=== PATIENT | male | born 1950 ===

== ENCOUNTER 2017-07-29 13:00 | Inpatient (IN) | payer OTHER ==
[2017-07-29 14:52] VITALS: BMI 34.8
[2017-07-29] MEDS: Oxycodone/Acetaminophen 5/325 mg Tab PO PRN (16:54)
[2017-07-29 19:40] VITALS: RESP 20
[2017-07-29] MEDS: Enoxaparin 30 mg Syringe SC SCH (21:12)
[2017-07-30] MEDS: GlipiZIDE 10 mg SR Tab PO SCH (08:26)
[2017-07-30] MEDS: Enoxaparin 30 mg Syringe SC SCH ×2 (08:27→20:13)
[2017-07-30] MEDS: Oxycodone/Acetaminophen 5/325 mg Tab PO PRN ×2 (11:58→20:14)
--- NOTE | 2017-07-30 12:26 | CP.PCM.HP ---
History of Present Illness - History of Present Illness History of Present Illness: Patient is a 67 gentleman with significant hx of severe OA, htn, DM2, hypercholestrol. Patient underwent to lt knee replacement. At present in post op comfortable not in distress, no SOS, no CP , afebrile. Patient for TCU. Present on Admission - Present on Admission Any Indicators Present on Admission: No Review of Systems - Constitutional Constitutional: As Per HPI - EENT Eyes: As Per HPI - Cardiovascular Cardiovascular: As Per HPI - Respiratory Respiratory: As Per HPI - Gastrointestinal Gastrointestinal: As Per HPI - Musculoskeletal Musculoskeletal: As Per HPI - Integumentary Integumentary: As Per HPI - Neurological Neurological: As Per HPI Past Patient History - Infectious Disease Hx of Infectious Diseases: None - Past Medical History & Family History Past Medical History?: Yes - Past Social History Smoking Status: Never Smoked - CARDIAC Hx Cardiac Disorders: Yes Hx Hypercholesterolemia: Yes Hx Hypertension: Yes - PULMONARY Hx Respiratory Disorders: No - NEUROLOGICAL Hx Neurological Disorder: No Hx Multiple Sclerosis: Yes (has not followed up with PMD in >1 year; no meds taken for this issue) - HEENT Hx HEENT Problems: No - RENAL Hx Chronic Kidney Disease: No - ENDOCRINE/METABOLIC Hx Diabetes Mellitus Type 2: Yes - HEMATOLOGICAL/ONCOLOGICAL Hx Blood Disorders: No Hx AIDS: No Hx Human Immunodeficiency Virus (HIV): No - INTEGUMENTARY Hx Dermatological Problems: No - MUSCULOSKELETAL/RHEUMATOLOGICAL Hx Arthritis: Yes Hx Falls: No Other/Comment: s/p left TKR - GASTROINTESTINAL Hx Gastrointestinal Disorders: No - GENITOURINARY/GYNECOLOGICAL Hx Genitourinary Disorders: No - PSYCHIATRIC Hx Emotional Abuse: No Hx Physical Abuse: No Hx Substance Use: No - SURGICAL HISTORY Hx Surgeries: Yes Hx Arthroscopy: Yes (LEFT KNEE) - ANESTHESIA Hx Anesthesia: Yes Hx Anesthesia Reactions: No Hx Malignant Hyperthermia: No Meds Allergies/Adverse Reactions: Allergies Allergy/AdvReac Type Severity Reaction Status Date / Time No Known Allergies Allergy Verified 07/29/17 14:18 Physical Exam - Constitutional Appears: Well - Eye Exam Eye Exam: EOMI, Normal appearance Pupil Exam: PERRL - ENT Exam ENT Exam: Mucous Membranes Moist - Respiratory Exam Respiratory Exam: Clear to Auscultation Bilateral - Cardiovascular Exam Cardiovascular Exam: REGULAR RHYTHM, +S1, +S2 - GI/Abdominal Exam GI & Abdominal Exam: Normal Bowel Sounds - Neurological Exam Neurological exam: Alert, CN II-XII Intact, Oriented x3 - Psychiatric Exam Psychiatric exam: Normal Affect - Skin Skin Exam: Normal Color Results - Vital Signs Recent Vital Signs: Last Vital Signs Temp 97.9 F 07/30/17 08:13 Pulse 82 07/30/17 08:27 Resp 20 07/30/17 08:13 BP 115/56 L 07/30/17 08:27 Pulse Ox 91 L 07/30/17 08:13 - Labs Labs: Laboratory Results - last 24 hr 07/30/17 10:45 POC Glucose (mg/dL) 143 H Assessment & Plan (1) Knee joint replacement status Status: Acute (2) Myalgia Status: Chronic (3) Arthritis Status: Chronic (4) Diabetes 1.5, managed as type 2 Status: Chronic (5) Hypercholesteremia Status: Chronic (6) Hypertensive cardiovascular disease Status: Chronic - Assessment and Plan (Free Text) Plan: Continue present rx.
[2017-07-30 13:34] LABS: MEAN CELL VOLUME 88.7 fl (80.0-94.0); MEAN CORPUSCULAR HEMOGLOBIN 29.7 pg (27.0-31.0); MEAN CORPUSCULAR HGB CONC 33.5 g/dL (33.0-37.0); RED CELL DISTRIBUTION WIDTH 13.2 % (11.5-14.5); WHITE BLOOD COUNT 10.7 K/uL (4.8-10.8)
[2017-07-30 13:43] LABS: BLOOD UREA NITROGEN 13 mg/dl (9-20); CALCIUM 9.1 mg/dL (8.4-10.2); CARBON DIOXIDE 23 mmol/L (22-30); CHLORIDE 102 mmol/L (98-107); GFR AFRICAN-AMERICAN > 60; GLUCOSE,RANDOM 115 mg/dL (75-110); SODIUM 138 mmol/l (132-148)
--- NOTE | 2017-07-30 15:02 | CP.PCM.CON ---
History of Present Illness - History of Present Illness History of Present Illness: david is a 67 year old male with left knee replacement Review of Systems - Musculoskeletal Musculoskeletal: Abnormal Gait, Muscle Weakness - Neurological Neurological: Weakness Past Patient History - Infectious Disease Hx of Infectious Diseases: None - Past Medical History & Family History Past Medical History?: Yes - Past Social History Smoking Status: Never Smoked - CARDIAC Hx Cardiac Disorders: Yes Hx Hypercholesterolemia: Yes Hx Hypertension: Yes - PULMONARY Hx Respiratory Disorders: No - NEUROLOGICAL Hx Neurological Disorder: No Hx Multiple Sclerosis: Yes (has not followed up with PMD in >1 year; no meds taken for this issue) - HEENT Hx HEENT Problems: No - RENAL Hx Chronic Kidney Disease: No - ENDOCRINE/METABOLIC Hx Diabetes Mellitus Type 2: Yes - HEMATOLOGICAL/ONCOLOGICAL Hx Blood Disorders: No Hx AIDS: No Hx Human Immunodeficiency Virus (HIV): No - INTEGUMENTARY Hx Dermatological Problems: No - MUSCULOSKELETAL/RHEUMATOLOGICAL Hx Arthritis: Yes Hx Falls: No Other/Comment: s/p left TKR - GASTROINTESTINAL Hx Gastrointestinal Disorders: No - GENITOURINARY/GYNECOLOGICAL Hx Genitourinary Disorders: No - PSYCHIATRIC Hx Emotional Abuse: No Hx Physical Abuse: No Hx Substance Use: No - SURGICAL HISTORY Hx Surgeries: Yes Hx Arthroscopy: Yes (LEFT KNEE) - ANESTHESIA Hx Anesthesia: Yes Hx Anesthesia Reactions: No Hx Malignant Hyperthermia: No Meds Allergies/Adverse Reactions: Allergies Allergy/AdvReac Type Severity Reaction Status Date / Time No Known Allergies Allergy Verified 07/29/17 14:18 - Medications Medications: Current Medications Acetaminophen (Tylenol 325mg Tab) 325 mg PO Q4 PRN PRN Reason: pain1-3 Aspirin (Ecotrin) 81 mg PO DAILY [facility] Last Admin: 07/30/17 08:25 Dose: 81 mg Atenolol (Tenormin) 50 mg PO DAILY [facility] Last Admin: 07/30/17 08:27 Dose: 50 mg Atorvastatin Calcium (Lipitor) 10 mg PO HS [facility] Last Admin: 07/29/17 21:12 Dose: 10 mg Celecoxib (Celebrex) 200 mg PO Q12 [facility] Last Admin: 07/30/17 08:25 Dose: 200 mg Docusate Sodium (Colace) 100 mg PO BID [facility] Last Admin: 07/30/17 08:25 Dose: 100 mg Enoxaparin Sodium (Lovenox) 30 mg SC Q12 [facility] PRN Reason: Protocol Last Admin: 07/30/17 08:27 Dose: 30 mg Glipizide (Glucotrol Xl) 10 mg PO BRK [facility] Last Admin: 07/30/17 08:26 Dose: 10 mg Lactulose (Enulose) 20 gm PO DAILY PRN PRN Reason: Constipation Last Admin: 07/29/17 21:13 Dose: 20 gm Metformin HCl (Glucophage) 500 mg PO DAILY [facility] Last Admin: 07/30/17 08:26 Dose: 500 mg Oxycodone/Acetaminophen (Percocet 5/325 Mg Tab) 1 tab PO Q8 PRN PRN Reason: Pain, moderate (4-7) Stop: 08/01/17 17:01 Last Admin: 07/30/17 11:58 Dose: 1 tab Sitagliptin Phosphate (Januvia) 100 mg PO DAILY [facility] Last Admin: 07/30/17 08:27 Dose: 100 mg Physical Exam - Head Exam Head Exam: ATRAUMATIC, NORMAL INSPECTION, NORMOCEPHALIC - Eye Exam Eye Exam: EOMI, Normal appearance, PERRL Pupil Exam: NORMAL ACCOMODATION - ENT Exam ENT Exam: Mucous Membranes Moist, Normal Exam - Neck Exam Neck exam: Positive for: Normal Inspection - Respiratory Exam Respiratory Exam: NORMAL BREATHING PATTERN - Cardiovascular Exam Cardiovascular Exam: REGULAR RHYTHM - GI/Abdominal Exam GI & Abdominal Exam: Normal Bowel Sounds - Rectal Exam Rectal Exam: NORMAL INSPECTION - Exam External exam: NORMAL EXTERNAL EXAM - Extremities Exam Extremities exam: Positive for: normal inspection - Back Exam Back exam: NORMAL INSPECTION - Neurological Exam Neurological exam: Alert, CN II-XII Intact - Psychiatric Exam Psychiatric exam: Normal Affect, Normal Mood - Skin Additional comments: left leg weakness with dressing in place Results - Vital Signs Recent Vital Signs: Last Vital Signs Temp 97.9 F 07/30/17 08:13 Pulse 82 07/30/17 08:27 Resp 20 07/30/17 08:13 BP 115/56 L 07/30/17 08:27 Pulse Ox 91 L 07/30/17 08:13 - Labs Result Diagrams: 07/30/17 13:15 07/30/17 13:15 Labs: Laboratory Results - last 24 hr 07/30/17 07/30/17 07/30/17 10:45 13:15 13:15 WBC 10.7 RBC 3.83 L Hgb 11.4 L Hct 34.0 L MCV 88.7 MCH 29.7 MCHC 33.5 RDW 13.2 Plt Count 248 Sodium 138 Potassium 4.0 Chloride 102 Carbon Dioxide 23 Anion Gap 17 BUN 13 Creatinine 0.8 Est GFR ( Amer) > 60 Est GFR (Non-Af Amer) > 60 POC Glucose (mg/dL) 143 H Random Glucose 115 H Calcium 9.1 Assessment & Plan (1) Knee joint replacement status Assessment and Plan: plan for physcial, occupational and rec therapy for ROM, strengthening , transfers and gait training . Monitor skin,and incisional site pain treatment Status: Acute (2) Arthritis Status: Chronic (3) Diabetes 1.5, managed as type 2 Status: Chronic (4) Hypercholesteremia Status: Chronic (5) Hypertensive cardiovascular disease Status: Chronic (6) Myalgia Status: Chronic
--- NOTE | 2017-07-30 16:36 | CP.PCM.PN ---
Subjective - Date & Time of Evaluation Date of Evaluation: 07/30/17 Time of Evaluation: 07:40 - Subjective Subjective: S/P LTKR POD#3 Pt seen and examined at bedside, comfortable in bed Pt denies any current left knee pain, well controlled with pain meds Pt denies any SOB, chest pain, N/V/D, numbness/tingling LLE Objective - Vital Signs/Intake and Output Vital Signs (last 24 hours): Temp Pulse Resp BP Pulse Ox 97.9 F 79 20 123/67 96 07/30/17 15:51 07/30/17 15:51 07/30/17 15:51 07/30/17 15:51 07/30/17 15:51 - Medications Medications: Current Medications Acetaminophen (Tylenol 325mg Tab) 325 mg PO Q4 PRN PRN Reason: pain1-3 Aspirin (Ecotrin) 81 mg PO DAILY [facility] Last Admin: 07/30/17 08:25 Dose: 81 mg Atenolol (Tenormin) 50 mg PO DAILY [facility] Last Admin: 07/30/17 08:27 Dose: 50 mg Atorvastatin Calcium (Lipitor) 10 mg PO HS [facility] Last Admin: 07/29/17 21:12 Dose: 10 mg Celecoxib (Celebrex) 200 mg PO Q12 [facility] Last Admin: 07/30/17 08:25 Dose: 200 mg Docusate Sodium (Colace) 100 mg PO BID [facility] Last Admin: 07/30/17 08:25 Dose: 100 mg Enoxaparin Sodium (Lovenox) 30 mg SC Q12 [facility] PRN Reason: Protocol Last Admin: 07/30/17 08:27 Dose: 30 mg Glipizide (Glucotrol Xl) 10 mg PO BRK [facility] Last Admin: 07/30/17 08:26 Dose: 10 mg Lactulose (Enulose) 20 gm PO DAILY PRN PRN Reason: Constipation Last Admin: 07/29/17 21:13 Dose: 20 gm Metformin HCl (Glucophage) 500 mg PO DAILY [facility] Last Admin: 07/30/17 08:26 Dose: 500 mg Oxycodone/Acetaminophen (Percocet 5/325 Mg Tab) 1 tab PO Q8 PRN PRN Reason: Pain, moderate (4-7) Stop: 08/01/17 17:01 Last Admin: 07/30/17 11:58 Dose: 1 tab Sitagliptin Phosphate (Januvia) 100 mg PO DAILY [facility] Last Admin: 07/30/17 08:27 Dose: 100 mg - Labs Labs: 07/30/17 13:15 07/30/17 13:15 - Constitutional Appears: Well, No Acute Distress - Respiratory Exam Respiratory Exam: Clear to Ausculation Bilateral, NORMAL BREATHING PATTERN - Cardiovascular Exam Cardiovascular Exam: REGULAR RHYTHM, RRR - Extremities Exam Additional comments: LLE: Knee dressing C/D/I Calves soft and nontender b/l N/V intact distally Normal ROM at ankle Distal pulses wnl Assessment and Plan - Assessment and Plan (Free Text) Assessment: 67 yo M s/p LTKR POD#3 Plan: Pain Control DVT ppx PT/OT WBAT LLE Continue current management Discussed with Dr. Putnam
--- NOTE | 2017-07-30 17:06 | PN ---
PHYSIATRY PROGRESS NOTE SUBJECTIVE: The patient is feeling fine, mild discomfort in the left knee. No other complaints at present. PHYSICAL EXAMINATION: VITAL SIGNS: Stable. NECK: Supple. CHEST: Symmetrical. HEART: S1 and S2. ABDOMEN: Area is benign. EXTREMITIES: No clubbing, cyanosis or edema. IMPRESSION: Left total knee replacement with also history of osteoarthritis, hypertension, diabetes, cholesterolemia. PLAN: Physical therapy and occupational therapy for range of motion, strengthening, transfers, ambulation, gait training, to monitor the quadriceps strength, improve range of motion of the knee. Dressing in place, able to dorsiflex and plantar flex the left foot. Luisito Martinez MD
[2017-07-31] MEDS: Enoxaparin 30 mg Syringe SC SCH ×2 (08:33→21:09)
[2017-07-31] MEDS: GlipiZIDE 10 mg SR Tab PO SCH (08:34)
--- NOTE | 2017-07-31 14:26 | CP.PCM.PN ---
Subjective - Date & Time of Evaluation Date of Evaluation: 07/31/17 Time of Evaluation: 14:27 - Subjective Subjective: Comfortable, no CO no SOB, no pain. Objective - Vital Signs/Intake and Output Vital Signs (last 24 hours): Temp Pulse Resp BP Pulse Ox 97.7 F 68 20 121/62 96 07/31/17 08:12 07/31/17 08:33 07/31/17 08:12 07/31/17 08:33 07/31/17 08:12 - Medications Medications: Current Medications Acetaminophen (Tylenol 325mg Tab) 325 mg PO Q4 PRN PRN Reason: pain1-3 Aspirin (Ecotrin) 81 mg PO DAILY [facility] Last Admin: 07/31/17 08:34 Dose: 81 mg Atenolol (Tenormin) 50 mg PO DAILY [facility] Last Admin: 07/31/17 08:33 Dose: 50 mg Atorvastatin Calcium (Lipitor) 10 mg PO HS [facility] Last Admin: 07/30/17 22:12 Dose: 10 mg Celecoxib (Celebrex) 200 mg PO Q12 [facility] Last Admin: 07/31/17 08:33 Dose: 200 mg Docusate Sodium (Colace) 100 mg PO BID [facility] Last Admin: 07/31/17 08:33 Dose: 100 mg Enoxaparin Sodium (Lovenox) 30 mg SC Q12 [facility] PRN Reason: Protocol Last Admin: 07/31/17 08:33 Dose: 30 mg Glipizide (Glucotrol Xl) 10 mg PO BRK [facility] Last Admin: 07/31/17 08:34 Dose: 10 mg Lactulose (Enulose) 20 gm PO DAILY PRN PRN Reason: Constipation Last Admin: 07/29/17 21:13 Dose: 20 gm Metformin HCl (Glucophage) 500 mg PO DAILY [facility] Last Admin: 07/31/17 08:34 Dose: 500 mg Oxycodone/Acetaminophen (Percocet 5/325 Mg Tab) 1 tab PO Q8 PRN PRN Reason: Pain, moderate (4-7) Stop: 08/01/17 17:01 Last Admin: 07/30/17 20:14 Dose: 1 tab Sitagliptin Phosphate (Januvia) 100 mg PO DAILY [facility] Last Admin: 07/31/17 08:33 Dose: 100 mg - Labs Labs: 07/30/17 13:15 07/30/17 13:15 - Constitutional Appears: Well - Head Exam Head Exam: ATRAUMATIC, NORMAL INSPECTION, NORMOCEPHALIC - Eye Exam Eye Exam: Normal appearance, PERRL - Neck Exam Neck Exam: Full ROM - Respiratory Exam Respiratory Exam: Clear to Ausculation Bilateral - Cardiovascular Exam Cardiovascular Exam: REGULAR RHYTHM, +S1, +S2 - GI/Abdominal Exam GI & Abdominal Exam: Normal Bowel Sounds - Neurological Exam Neurological Exam: Alert, Awake, CN II-XII Intact, Oriented x3 - Psychiatric Exam Psychiatric exam: Normal Affect - Skin Skin Exam: Normal Color Assessment and Plan (1) Knee joint replacement status Status: Acute (2) Myalgia Status: Chronic (3) Arthritis Status: Chronic (4) Diabetes 1.5, managed as type 2 Status: Chronic (5) Hypercholesteremia Status: Chronic (6) Hypertensive cardiovascular disease Status: Chronic - Assessment and Plan (Free Text) Plan: Continue present rx.
[2017-07-31] MEDS: Oxycodone/Acetaminophen 5/325 mg Tab PO PRN (17:16)
[2017-08-01] MEDS: Oxycodone/Acetaminophen 5/325 mg Tab PO PRN ×2 (06:00→16:14)
[2017-08-01] MEDS: GlipiZIDE 10 mg SR Tab PO SCH (08:38)
[2017-08-01] MEDS: Enoxaparin 30 mg Syringe SC SCH ×2 (08:39→21:16)
[2017-08-01] MEDS ORDERED: Oxycodone/Acetaminophen 5/325 mg Tab PO PRN (18:33)
[2017-08-02] MEDS: GlipiZIDE 10 mg SR Tab PO SCH (08:20)
--- NOTE | 2017-08-02 13:13 | CP.PCM.PN ---
Subjective - Date & Time of Evaluation Date of Evaluation: 08/02/17 Time of Evaluation: 13:13 - Subjective Subjective: No new c/o Objective - Vital Signs/Intake and Output Vital Signs (last 24 hours): Temp Pulse Resp BP Pulse Ox 97.7 F 68 20 116/59 L 99 08/02/17 10:00 08/02/17 10:00 08/02/17 10:00 08/02/17 10:00 08/02/17 10:00 - Medications Medications: Current Medications Acetaminophen (Tylenol 325mg Tab) 325 mg PO Q4 PRN PRN Reason: pain1-3 Aspirin (Ecotrin) 81 mg PO DAILY [facility] Last Admin: 08/02/17 08:20 Dose: 81 mg Atenolol (Tenormin) 50 mg PO DAILY [facility] Last Admin: 08/02/17 08:20 Dose: 50 mg Atorvastatin Calcium (Lipitor) 10 mg PO HS [facility] Last Admin: 08/01/17 21:16 Dose: 10 mg Celecoxib (Celebrex) 200 mg PO Q12 [facility] Last Admin: 08/02/17 08:20 Dose: 200 mg Docusate Sodium (Colace) 100 mg PO BID [facility] Last Admin: 08/02/17 08:20 Dose: 100 mg Famotidine (Pepcid) 20 mg PO BID [facility] Last Admin: 08/02/17 08:23 Dose: 20 mg Glipizide (Glucotrol Xl) 10 mg PO BRK [facility] Last Admin: 08/02/17 08:20 Dose: 10 mg Lactulose (Enulose) 20 gm PO DAILY PRN PRN Reason: Constipation Last Admin: 08/01/17 01:00 Dose: 20 gm Metformin HCl (Glucophage) 500 mg PO DAILY@0800 [facility] Last Admin: 08/02/17 08:20 Dose: 500 mg Oxycodone/Acetaminophen (Percocet 5/325 Mg Tab) 1 tab PO Q8 PRN PRN Reason: Pain, moderate (4-7) Stop: 08/05/17 01:01 Last Admin: 08/02/17 09:16 Dose: 1 tab Sitagliptin Phosphate (Januvia) 100 mg PO DAILY [facility] Last Admin: 08/02/17 08:20 Dose: 100 mg - Labs Labs: 07/30/17 13:15 07/30/17 13:15 - Constitutional Appears: Well - Head Exam Head Exam: ATRAUMATIC, NORMAL INSPECTION, NORMOCEPHALIC - Eye Exam Eye Exam: Normal appearance - ENT Exam ENT Exam: Mucous Membranes Moist - Neck Exam Neck Exam: Full ROM - Respiratory Exam Respiratory Exam: Clear to Ausculation Bilateral - Cardiovascular Exam Cardiovascular Exam: REGULAR RHYTHM, +S1, +S2 - GI/Abdominal Exam GI & Abdominal Exam: Soft, Normal Bowel Sounds - Neurological Exam Neurological Exam: Alert, Awake, CN II-XII Intact, Oriented x3 - Psychiatric Exam Psychiatric exam: Normal Affect - Skin Skin Exam: Normal Color Assessment and Plan (1) Knee joint replacement status Status: Acute (2) Myalgia Status: Chronic (3) Arthritis Status: Chronic (4) Diabetes 1.5, managed as type 2 Status: Chronic (5) Hypercholesteremia Status: Chronic (6) Hypertensive cardiovascular disease Status: Chronic - Assessment and Plan (Free Text) Plan: Continue present rx.
[2017-08-02] MEDS: Oxycodone/Acetaminophen 5/325 mg Tab PO PRN (16:27)
[2017-08-03] MEDS: GlipiZIDE 10 mg SR Tab PO SCH (08:46)
[2017-08-03] MEDS: Oxycodone/Acetaminophen 5/325 mg Tab PO PRN ×3 (09:00→21:20)
--- NOTE | 2017-08-03 15:13 | CP.PCM.PN ---
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 Objective - Vital Signs/Intake and Output Vital Signs (last 24 hours): Temp Pulse Resp BP Pulse Ox 97.7 F 68 20 125/59 L 99 08/03/17 07:41 08/03/17 08:45 08/03/17 07:41 08/03/17 08:45 08/03/17 07:41 - Medications Medications: Current Medications Acetaminophen (Tylenol 325mg Tab) 325 mg PO Q4 PRN PRN Reason: pain1-3 Aspirin (Ecotrin) 81 mg PO DAILY [facility] Last Admin: 08/03/17 08:44 Dose: 81 mg Atenolol (Tenormin) 50 mg PO DAILY [facility] Last Admin: 08/03/17 08:45 Dose: 50 mg Atorvastatin Calcium (Lipitor) 10 mg PO HS [facility] Last Admin: 08/02/17 21:17 Dose: 10 mg Celecoxib (Celebrex) 200 mg PO Q12 [facility] Last Admin: 08/03/17 08:40 Dose: 200 mg Docusate Sodium (Colace) 100 mg PO BID [facility] Last Admin: 08/03/17 08:45 Dose: 100 mg Famotidine (Pepcid) 20 mg PO BID [facility] Last Admin: 08/03/17 08:46 Dose: 20 mg Glipizide (Glucotrol Xl) 10 mg PO BRK [facility] Last Admin: 08/03/17 08:46 Dose: 10 mg Lactulose (Enulose) 20 gm PO DAILY PRN PRN Reason: Constipation Last Admin: 08/01/17 01:00 Dose: 20 gm Metformin HCl (Glucophage) 500 mg PO DAILY@0800 [facility] Last Admin: 08/03/17 08:46 Dose: 500 mg Oxycodone/Acetaminophen (Percocet 5/325 Mg Tab) 1 tab PO Q6 PRN PRN Reason: Pain, moderate (4-7) Stop: 08/05/17 16:01 Last Admin: 08/03/17 14:09 Dose: 1 tab Sitagliptin Phosphate (Januvia) 100 mg PO DAILY [facility] Last Admin: 08/03/17 08:45 Dose: 100 mg - Labs Labs: 07/30/17 13:15 07/30/17 13:15 - Constitutional Appears: Well - Head Exam Head Exam: ATRAUMATIC, NORMAL INSPECTION - Eye Exam Eye Exam: EOMI, Normal appearance, PERRL - ENT Exam ENT Exam: Mucous Membranes Moist - Neck Exam Neck Exam: Full ROM - Respiratory Exam Respiratory Exam: Clear to Ausculation Bilateral - Cardiovascular Exam Cardiovascular Exam: REGULAR RHYTHM, +S1, +S2 - GI/Abdominal Exam GI & Abdominal Exam: Soft, Normal Bowel Sounds - Neurological Exam Neurological Exam: Alert, Awake, CN II-XII Intact, Oriented x3 - Psychiatric Exam Psychiatric exam: Normal Affect - Skin Skin Exam: Normal Color Assessment and Plan (1) Knee joint replacement status Status: Acute (2) Myalgia Status: Chronic (3) Arthritis Status: Chronic (4) Diabetes 1.5, managed as type 2 Status: Chronic (5) Hypercholesteremia Status: Chronic (6) Hypertensive cardiovascular disease Status: Chronic - Assessment and Plan (Free Text) Plan: Continue present rx.
--- NOTE | 2017-08-03 17:42 | CP.PCM.PN ---
Subjective - Date & Time of Evaluation Date of Evaluation: 08/02/17 Time of Evaluation: 13:00 - Subjective Subjective: no acute complaints of any knee pain Objective - Vital Signs/Intake and Output Vital Signs (last 24 hours): Temp Pulse Resp BP Pulse Ox 98.2 F 74 20 126/63 96 08/03/17 16:38 08/03/17 16:38 08/03/17 16:38 08/03/17 16:38 08/03/17 16:38 - Medications Medications: Current Medications Acetaminophen (Tylenol 325mg Tab) 325 mg PO Q4 PRN PRN Reason: pain1-3 Aspirin (Ecotrin) 81 mg PO DAILY [facility] Last Admin: 08/03/17 08:44 Dose: 81 mg Atenolol (Tenormin) 50 mg PO DAILY [facility] Last Admin: 08/03/17 08:45 Dose: 50 mg Atorvastatin Calcium (Lipitor) 10 mg PO HS [facility] Last Admin: 08/02/17 21:17 Dose: 10 mg Celecoxib (Celebrex) 200 mg PO Q12 [facility] Last Admin: 08/03/17 08:40 Dose: 200 mg Docusate Sodium (Colace) 100 mg PO BID [facility] Last Admin: 08/03/17 16:45 Dose: 100 mg Famotidine (Pepcid) 20 mg PO BID [facility] Last Admin: 08/03/17 16:45 Dose: 20 mg Glipizide (Glucotrol Xl) 10 mg PO BRK [facility] Last Admin: 08/03/17 08:46 Dose: 10 mg Lactulose (Enulose) 20 gm PO DAILY PRN PRN Reason: Constipation Last Admin: 08/01/17 01:00 Dose: 20 gm Metformin HCl (Glucophage) 500 mg PO DAILY@0800 [facility] Last Admin: 08/03/17 08:46 Dose: 500 mg Oxycodone/Acetaminophen (Percocet 5/325 Mg Tab) 1 tab PO Q6 PRN PRN Reason: Pain, moderate (4-7) Stop: 08/05/17 16:01 Last Admin: 08/03/17 14:09 Dose: 1 tab Sitagliptin Phosphate (Januvia) 100 mg PO DAILY [facility] Last Admin: 08/03/17 08:45 Dose: 100 mg - Labs Labs: 07/30/17 13:15 07/30/17 13:15 - Head Exam Head Exam: ATRAUMATIC, NORMAL INSPECTION, NORMOCEPHALIC - Eye Exam Eye Exam: EOMI, Normal appearance Pupil Exam: NORMAL ACCOMODATION, PERRL - ENT Exam ENT Exam: Mucous Membranes Moist - Neck Exam Neck Exam: Normal Inspection - Respiratory Exam Respiratory Exam: Clear to Ausculation Bilateral - Cardiovascular Exam Cardiovascular Exam: REGULAR RHYTHM - GI/Abdominal Exam GI & Abdominal Exam: Normal Bowel Sounds - Rectal Exam Rectal Exam: NORMAL INSPECTION - Exam External exam: NORMAL EXTERNAL EXAM - Extremities Exam Extremities Exam: Normal Inspection - Back Exam Back Exam: NORMAL INSPECTION - Neurological Exam Neurological Exam: Alert, Awake Neuro motor strength exam: Left Upper Extremity: 4, Right Upper Extremity: 4, Left Lower Extremity: 3, Right Lower Extremity: 4 - Psychiatric Exam Psychiatric exam: Normal Affect, Normal Mood - Skin Skin Exam: Normal Color Assessment and Plan (1) Knee joint replacement status Assessment & Plan: plan for physical, occupational, rec therapy for range of motion, strengthening transfers and gait training monitor range of motion of the knee, and skin Status: Acute (2) Arthritis Status: Chronic (3) Diabetes 1.5, managed as type 2 Status: Chronic (4) Hypercholesteremia Status: Chronic (5) Hypertensive cardiovascular disease Status: Chronic (6) Myalgia Status: Chronic
[2017-08-04] MEDS: Oxycodone/Acetaminophen 5/325 mg Tab PO PRN ×2 (06:06→15:15)
[2017-08-04 06:33] LABS: HEMATOCRIT 36.1 % (35.0-51.0); MEAN CELL VOLUME 87.8 fl (80.0-94.0); MEAN CORPUSCULAR HEMOGLOBIN 29.7 pg (27.0-31.0); MEAN CORPUSCULAR HGB CONC 33.8 g/dL (33.0-37.0); RED CELL DISTRIBUTION WIDTH 13.5 % (11.5-14.5); WHITE BLOOD COUNT 9.5 K/uL (4.8-10.8)
[2017-08-04 06:44] LABS: BLOOD UREA NITROGEN 19 mg/dl (9-20); CALCIUM 9.4 mg/dL (8.4-10.2); CARBON DIOXIDE 25 mmol/L (22-30); CHLORIDE 101 mmol/L (98-107); GFR AFRICAN-AMERICAN > 60; GLUCOSE,RANDOM 87 mg/dL (75-110); POTASSIUM 4.2 MMOL/L (3.6-5.0); SODIUM 141 mmol/l (132-148)
[2017-08-04] MEDS: GlipiZIDE 10 mg SR Tab PO SCH (08:25)
--- NOTE | 2017-08-04 18:48 | CP.PCM.PN ---
Subjective - Date & Time of Evaluation Date of Evaluation: 08/04/17 Time of Evaluation: 18:48 - Subjective Subjective: Comfortable. Objective - Vital Signs/Intake and Output Vital Signs (last 24 hours): Temp Pulse Resp BP Pulse Ox 97.9 F 68 20 128/65 97 08/04/17 16:07 08/04/17 16:07 08/04/17 16:07 08/04/17 16:07 08/04/17 16:07 - Medications Medications: Current Medications Acetaminophen (Tylenol 325mg Tab) 325 mg PO Q4 PRN PRN Reason: pain1-3 Aspirin (Ecotrin) 81 mg PO DAILY [facility] Last Admin: 08/04/17 08:24 Dose: 81 mg Atenolol (Tenormin) 50 mg PO DAILY [facility] Last Admin: 08/04/17 08:25 Dose: 50 mg Atorvastatin Calcium (Lipitor) 10 mg PO HS [facility] Last Admin: 08/03/17 21:21 Dose: 10 mg Celecoxib (Celebrex) 200 mg PO Q12 [facility] Last Admin: 08/04/17 08:24 Dose: 200 mg Docusate Sodium (Colace) 100 mg PO BID [facility] Last Admin: 08/04/17 17:21 Dose: 100 mg Famotidine (Pepcid) 20 mg PO BID [facility] Last Admin: 08/04/17 17:21 Dose: 20 mg Glipizide (Glucotrol Xl) 10 mg PO BRK [facility] Last Admin: 08/04/17 08:25 Dose: 10 mg Lactulose (Enulose) 20 gm PO DAILY PRN PRN Reason: Constipation Last Admin: 08/01/17 01:00 Dose: 20 gm Metformin HCl (Glucophage) 500 mg PO DAILY@0800 [facility] Last Admin: 08/04/17 08:25 Dose: 500 mg Oxycodone/Acetaminophen (Percocet 5/325 Mg Tab) 1 tab PO Q6 PRN PRN Reason: Pain, moderate (4-7) Stop: 08/05/17 16:01 Last Admin: 08/04/17 15:15 Dose: 1 tab Sitagliptin Phosphate (Januvia) 100 mg PO DAILY [facility] Last Admin: 08/04/17 08:25 Dose: 100 mg - Labs Labs: 08/04/17 05:15 08/04/17 05:15 - Constitutional Appears: Well - Head Exam Head Exam: ATRAUMATIC, NORMAL INSPECTION, NORMOCEPHALIC - Eye Exam Eye Exam: Normal appearance - ENT Exam ENT Exam: Mucous Membranes Moist - Neck Exam Neck Exam: Full ROM - Respiratory Exam Respiratory Exam: Clear to Ausculation Bilateral - Cardiovascular Exam Cardiovascular Exam: REGULAR RHYTHM, +S1, +S2 - GI/Abdominal Exam GI & Abdominal Exam: Soft, Normal Bowel Sounds - Neurological Exam Neurological Exam: Alert, Awake, CN II-XII Intact, Oriented x3 - Psychiatric Exam Psychiatric exam: Normal Affect - Skin Skin Exam: Normal Color Assessment and Plan (1) Knee joint replacement status Status: Acute (2) Myalgia Status: Chronic (3) Arthritis Status: Chronic (4) Diabetes 1.5, managed as type 2 Status: Chronic (5) Hypercholesteremia Status: Chronic (6) Hypertensive cardiovascular disease Status: Chronic
[2017-08-05] MEDS: GlipiZIDE 10 mg SR Tab PO SCH (08:19)
[2017-08-05] MEDS: Oxycodone/Acetaminophen 5/325 mg Tab PO PRN (13:03)
--- NOTE | 2017-08-05 13:22 | CP.PCM.PN ---
Subjective - Date & Time of Evaluation Date of Evaluation: 08/05/17 Time of Evaluation: 13:22 - Subjective Subjective: No new changes comfortable Objective - Vital Signs/Intake and Output Vital Signs (last 24 hours): Temp Pulse Resp BP Pulse Ox 97.7 F 69 20 119/64 96 08/05/17 08:17 08/05/17 08:19 08/05/17 08:17 08/05/17 08:19 08/05/17 08:17 - Medications Medications: Current Medications Acetaminophen (Tylenol 325mg Tab) 325 mg PO Q4 PRN PRN Reason: pain1-3 Aspirin (Ecotrin) 81 mg PO DAILY [facility] Last Admin: 08/05/17 08:18 Dose: 81 mg Atenolol (Tenormin) 50 mg PO DAILY [facility] Last Admin: 08/05/17 08:19 Dose: 50 mg Atorvastatin Calcium (Lipitor) 10 mg PO HS [facility] Last Admin: 08/04/17 21:47 Dose: 10 mg Celecoxib (Celebrex) 200 mg PO Q12 [facility] Last Admin: 08/05/17 08:18 Dose: 200 mg Docusate Sodium (Colace) 100 mg PO BID [facility] Last Admin: 08/05/17 08:18 Dose: 100 mg Enoxaparin Sodium (Lovenox) 30 mg SC Q12 [facility] PRN Reason: Protocol Famotidine (Pepcid) 20 mg PO BID [facility] Last Admin: 08/05/17 08:19 Dose: 20 mg Glipizide (Glucotrol Xl) 10 mg PO BRK [facility] Last Admin: 08/05/17 08:19 Dose: 10 mg Lactulose (Enulose) 20 gm PO DAILY PRN PRN Reason: Constipation Last Admin: 08/01/17 01:00 Dose: 20 gm Metformin HCl (Glucophage) 500 mg PO DAILY@0800 [facility] Last Admin: 08/05/17 08:18 Dose: 500 mg Oxycodone/Acetaminophen (Percocet 5/325 Mg Tab) 1 tab PO Q6 PRN PRN Reason: Pain, moderate (4-7) Stop: 08/05/17 16:01 Last Admin: 08/05/17 13:03 Dose: 1 tab Sitagliptin Phosphate (Januvia) 100 mg PO DAILY [facility] Last Admin: 08/05/17 08:19 Dose: 100 mg - Labs Labs: 08/04/17 05:15 09/27/17 05:15 - Constitutional Appears: Well - Head Exam Head Exam: ATRAUMATIC, NORMAL INSPECTION - Eye Exam Eye Exam: Normal appearance - ENT Exam ENT Exam: Mucous Membranes Moist - Neck Exam Neck Exam: Full ROM - Respiratory Exam Respiratory Exam: Clear to Ausculation Bilateral - Cardiovascular Exam Cardiovascular Exam: REGULAR RHYTHM - GI/Abdominal Exam GI & Abdominal Exam: Soft, Normal Bowel Sounds - Neurological Exam Neurological Exam: Alert, Awake, CN II-XII Intact, Oriented x3 - Psychiatric Exam Psychiatric exam: Normal Affect - Skin Skin Exam: Normal Color Assessment and Plan (1) Knee joint replacement status Status: Acute (2) Myalgia Status: Chronic (3) Arthritis Status: Chronic (4) Diabetes 1.5, managed as type 2 Status: Chronic (5) Hypercholesteremia Status: Chronic (6) Hypertensive cardiovascular disease Status: Chronic
--- NOTE | 2017-08-05 17:46 | CP.PCM.PN ---
Subjective - Date & Time of Evaluation Date of Evaluation: 08/04/17 Time of Evaluation: 13:00 - Subjective Subjective: patient with no acute complaint of any pain in the knee Objective - Vital Signs/Intake and Output Vital Signs (last 24 hours): Temp Pulse Resp BP Pulse Ox 97.9 F 67 20 124/68 97 08/05/17 16:06 08/05/17 16:06 08/05/17 16:06 08/05/17 16:06 08/05/17 16:06 - Medications Medications: Current Medications Acetaminophen (Tylenol 325mg Tab) 325 mg PO Q4 PRN PRN Reason: pain1-3 Aspirin (Ecotrin) 81 mg PO DAILY [facility] Last Admin: 08/05/17 08:18 Dose: 81 mg Atenolol (Tenormin) 50 mg PO DAILY [facility] Last Admin: 08/05/17 08:19 Dose: 50 mg Atorvastatin Calcium (Lipitor) 10 mg PO HS [facility] Last Admin: 08/04/17 21:47 Dose: 10 mg Celecoxib (Celebrex) 200 mg PO Q12 [facility] Last Admin: 08/05/17 08:18 Dose: 200 mg Docusate Sodium (Colace) 100 mg PO BID [facility] Last Admin: 08/05/17 17:21 Dose: 100 mg Enoxaparin Sodium (Lovenox) 30 mg SC Q12 [facility] PRN Reason: Protocol Famotidine (Pepcid) 20 mg PO BID [facility] Last Admin: 08/05/17 17:21 Dose: 20 mg Glipizide (Glucotrol Xl) 10 mg PO BRK [facility] Last Admin: 08/05/17 08:19 Dose: 10 mg Lactulose (Enulose) 20 gm PO DAILY PRN PRN Reason: Constipation Last Admin: 08/01/17 01:00 Dose: 20 gm Metformin HCl (Glucophage) 500 mg PO DAILY@0800 [facility] Last Admin: 08/05/17 08:18 Dose: 500 mg Sitagliptin Phosphate (Januvia) 100 mg PO DAILY [facility] Last Admin: 08/05/17 08:19 Dose: 100 mg - Labs Labs: 08/04/17 05:15 08/04/17 05:15 - Head Exam Head Exam: ATRAUMATIC, NORMAL INSPECTION, NORMOCEPHALIC - Eye Exam Eye Exam: EOMI, Normal appearance Pupil Exam: NORMAL ACCOMODATION, PERRL - ENT Exam ENT Exam: Mucous Membranes Moist, Normal Exam - Respiratory Exam Respiratory Exam: Clear to Ausculation Bilateral, NORMAL BREATHING PATTERN - Cardiovascular Exam Cardiovascular Exam: REGULAR RHYTHM - GI/Abdominal Exam GI & Abdominal Exam: Normal Bowel Sounds - Rectal Exam Rectal Exam: NORMAL INSPECTION - Exam External exam: NORMAL EXTERNAL EXAM - Extremities Exam Extremities Exam: Normal Inspection - Back Exam Back Exam: NORMAL INSPECTION - Neurological Exam Neurological Exam: Alert, Awake Neuro motor strength exam: Left Upper Extremity: 4, Right Upper Extremity: 4, Left Lower Extremity: 3, Right Lower Extremity: 4 - Psychiatric Exam Psychiatric exam: Normal Affect, Normal Mood - Skin Skin Exam: Dry, Normal Color Assessment and Plan (1) Knee joint replacement status Assessment & Plan: discussed with nursing to ask ortho removal of dressing form the knee, at present to continue with pt , ot therapy Status: Acute (2) Arthritis Status: Chronic (3) Diabetes 1.5, managed as type 2 Status: Chronic (4) Hypercholesteremia Status: Chronic (5) Hypertensive cardiovascular disease Status: Chronic (6) Myalgia Status: Chronic
[2017-08-05] MEDS: Enoxaparin 30 mg Syringe SC SCH (22:18)
[2017-08-06] MEDS: Enoxaparin 30 mg Syringe SC SCH ×2 (08:57→22:02)
[2017-08-06] MEDS: GlipiZIDE 10 mg SR Tab PO SCH (08:57)
--- NOTE | 2017-08-06 13:05 | CP.PCM.PN ---
Subjective - Date & Time of Evaluation Date of Evaluation: 08/06/17 Time of Evaluation: 13:05 - Subjective Subjective: No new c/o Objective - Vital Signs/Intake and Output Vital Signs (last 24 hours): Temp Pulse Resp BP Pulse Ox 97.3 F L 75 20 135/69 95 08/06/17 08:01 08/06/17 08:57 08/06/17 08:01 08/06/17 08:57 08/06/17 08:01 - Medications Medications: Current Medications Acetaminophen (Tylenol 325mg Tab) 325 mg PO Q4 PRN PRN Reason: pain1-3 Aspirin (Ecotrin) 81 mg PO DAILY [facility] Last Admin: 08/06/17 08:57 Dose: 81 mg Atenolol (Tenormin) 50 mg PO DAILY [facility] Last Admin: 08/06/17 08:57 Dose: 50 mg Atorvastatin Calcium (Lipitor) 10 mg PO HS [facility] Last Admin: 08/05/17 22:17 Dose: 10 mg Celecoxib (Celebrex) 200 mg PO Q12 [facility] Last Admin: 08/06/17 08:56 Dose: 200 mg Docusate Sodium (Colace) 100 mg PO BID [facility] Last Admin: 08/06/17 08:56 Dose: 100 mg Enoxaparin Sodium (Lovenox) 30 mg SC Q12 [facility] PRN Reason: Protocol Last Admin: 08/06/17 08:57 Dose: 30 mg Famotidine (Pepcid) 20 mg PO BID [facility] Last Admin: 08/06/17 08:57 Dose: 20 mg Glipizide (Glucotrol Xl) 10 mg PO BRK [facility] Last Admin: 08/06/17 08:57 Dose: 10 mg Lactulose (Enulose) 20 gm PO DAILY PRN PRN Reason: Constipation Last Admin: 08/01/17 01:00 Dose: 20 gm Metformin HCl (Glucophage) 500 mg PO DAILY@0800 [facility] Last Admin: 08/06/17 08:56 Dose: 500 mg Sitagliptin Phosphate (Januvia) 100 mg PO DAILY [facility] Last Admin: 08/06/17 08:57 Dose: 100 mg - Labs Labs: 08/04/17 05:15 08/04/17 05:15 - Constitutional Appears: Well - Head Exam Head Exam: ATRAUMATIC, NORMAL INSPECTION, NORMOCEPHALIC - Eye Exam Eye Exam: Normal appearance Pupil Exam: PERRL - ENT Exam ENT Exam: Mucous Membranes Moist - Neck Exam Neck Exam: Full ROM - Respiratory Exam Respiratory Exam: Clear to Ausculation Bilateral - Cardiovascular Exam Cardiovascular Exam: REGULAR RHYTHM, +S1, +S2 - GI/Abdominal Exam GI & Abdominal Exam: Soft, Normal Bowel Sounds - Neurological Exam Neurological Exam: Alert, Awake, CN II-XII Intact, Oriented x3 - Psychiatric Exam Psychiatric exam: Normal Affect - Skin Skin Exam: Normal Color Assessment and Plan (1) Knee joint replacement status Status: Acute (2) Myalgia Status: Chronic (3) Arthritis Status: Chronic (4) Diabetes 1.5, managed as type 2 Status: Chronic (5) Hypercholesteremia Status: Chronic (6) Hypertensive cardiovascular disease Status: Chronic - Assessment and Plan (Free Text) Plan: Continue present rx
[2017-08-06] MEDS ORDERED: Oxycodone/Acetaminophen 5/325 mg Tab PO PRN (14:49)
--- NOTE | 2017-08-06 15:54 | PN ---
PHYSIATRY PROGRESS NOTE SUBJECTIVE: The patient is a friendly male, 67-year-old, in no acute distress. No complaints of any leg pain or tenderness. PHYSICAL EXAMINATION VITAL SIGNS: Stable. NECK: Supple. CHEST: Symmetrical. HEART: Sounds S1 and S2. ABDOMEN: Area is benign. EXTREMITIES: No clubbing, cyanosis, or edema. IMPRESSION: Left total knee replacement, osteoarthritis, hypertension, deconditioning. PLAN: Physical and occupational therapy for range of motion, strengthening, transfers, ambulation, gait training. Tentative discharge for tomorrow. The patient is to follow up with Dr. Putnam, patient's orthopedic physician and his medical physician in 1-2 weeks. Luisito Martinez MD
[2017-08-07 08:21] VITALS: BP 134/61; PULSE 65; TEMP 97.9; O2SAT 99
--- NOTE | 2017-08-07 08:41 | CP.PCM.DIS ---
Provider - Provider Date of Admission: 07/29/17 14:52 Attending physician: Sourav Graec MD Primary care physician: Sourav Grace MD Time Spent in preparation of Discharge (in minutes): 30 Diagnosis - Discharge Diagnosis (1) Knee joint replacement status Status: Acute (2) Myalgia Status: Chronic (3) Arthritis Status: Chronic (4) Diabetes 1.5, managed as type 2 Status: Chronic (5) Hypercholesteremia Status: Chronic (6) Hypertensive cardiovascular disease Status: Chronic Hospital Course - Lab Results Lab Results: Most Recent Lab Values WBC 9.5 K/uL (4.8-10.8) 08/04/17 05:15 RBC 4.11 Mil/uL (4.40-5.90) L 08/04/17 05:15 Hgb 12.2 g/dL (12.0-18.0) 08/04/17 05:15 Hct 36.1 % (35.0-51.0) 08/04/17 05:15 MCV 87.8 fl (80.0-94.0) 08/04/17 05:15 MCH 29.7 pg (27.0-31.0) 08/04/17 05:15 MCHC 33.8 g/dL (33.0-37.0) 08/04/17 05:15 RDW 13.5 % (11.5-14.5) 08/04/17 05:15 Plt Count 312 K/uL (130-400) 08/04/17 05:15 Sodium 141 mmol/l (132-148) 08/04/17 05:15 Potassium 4.2 MMOL/L (3.6-5.0) 08/04/17 05:15 Chloride 101 mmol/L (98-107) 08/04/17 05:15 Carbon Dioxide 25 mmol/L (22-30) 08/04/17 05:15 Anion Gap 19 (10-20) 08/04/17 05:15 BUN 19 mg/dl (9-20) 08/04/17 05:15 Creatinine 0.9 mg/dL (0.8-1.5) 08/04/17 05:15 Est GFR ( Amer) > 60 08/04/17 05:15 Est GFR (Non-Af Amer) > 60 08/04/17 05:15 POC Glucose (mg/dL) 78 mg/dL (65-110) 08/07/17 04:16 Random Glucose 87 mg/dL (75-110) 08/04/17 05:15 Calcium 9.4 mg/dL (8.4-10.2) 08/04/17 05:15 - Hospital Course Hospital Course: Patient is a 67 gentleman with significant hx of severe OA, htn, DM2, hypercholestrol. Patient underwent to lt knee replacement. At present in post op comfortable not in distress, no SOS, no CP , afebrile. Patient responded well to rx. Discharge Exam - Head Exam Head Exam: ATRAUMATIC, NORMAL INSPECTION, NORMOCEPHALIC - Eye Exam Eye Exam: Normal appearance - Respiratory Exam Respiratory Exam: Clear to PA & Lateral - Cardiovascular Exam Cardiovascular Exam: REGULAR RHYTHM, +S1, +S2 - GI/Abdominal Exam GI & Abdominal Exam: Normal Bowel Sounds - Extremities Exam Extremities exam: normal inspection - Neurological Exam Neurological exam: Alert, CN II-XII Intact, Oriented x3, Reflexes Normal - Psychiatric Exam Psychiatric exam: Normal Affect - Skin Skin Exam: Normal Color Discharge Plan - Discharge Medications Prescriptions: Aspirin [Aspirin EC] 325 mg PO BID #[id number] ect - Follow Up Plan Condition: GOOD Disposition: HOME/ ROUTINE Instructions: Knee Replacement (DC) Referrals: Senthil Putnam MD [Staff Provider] - Sourav Grace MD [Primary Care Provider] -
[2017-08-07] MEDS: Enoxaparin 30 mg Syringe SC SCH (09:24)
[2017-08-07] MEDS: GlipiZIDE 10 mg SR Tab PO SCH (09:25)
--- NOTE | 2017-08-08 17:58 | CP.PCM.PN ---
Subjective - Date & Time of Evaluation Date of Evaluation: 08/07/17 Time of Evaluation: 09:00 - Subjective Subjective: no acute complaints of the knee Objective - Vital Signs/Intake and Output Vital Signs (last 24 hours): Temp Pulse Resp BP Pulse Ox 97.9 F 65 20 134/61 99 08/07/17 08:20 08/07/17 09:25 08/07/17 08:20 08/07/17 09:25 08/07/17 08:20 - Labs Labs: 08/04/17 05:15 08/04/17 05:15 - Head Exam Head Exam: ATRAUMATIC, NORMAL INSPECTION, NORMOCEPHALIC - Eye Exam Eye Exam: EOMI, Normal appearance Pupil Exam: NORMAL ACCOMODATION, PERRL - ENT Exam ENT Exam: Normal Oropharynx - Neck Exam Neck Exam: Normal Inspection - Respiratory Exam Respiratory Exam: Clear to Ausculation Bilateral, NORMAL BREATHING PATTERN - Cardiovascular Exam Cardiovascular Exam: REGULAR RHYTHM - GI/Abdominal Exam GI & Abdominal Exam: Normal Bowel Sounds - Rectal Exam Rectal Exam: NORMAL INSPECTION - Exam External exam: NORMAL EXTERNAL EXAM - Extremities Exam Extremities Exam: Normal Capillary Refill - Back Exam Back Exam: NORMAL INSPECTION - Neurological Exam Neurological Exam: Alert, Awake Neuro motor strength exam: Left Upper Extremity: 4, Right Upper Extremity: 4, Left Lower Extremity: 3, Right Lower Extremity: 4 - Psychiatric Exam Psychiatric exam: Normal Affect, Normal Mood - Skin Skin Exam: Normal Color Assessment and Plan (1) Knee joint replacement status Assessment & Plan: status post physical, occupational therapy for range of motion strenghtening, transfers and gait training improve range of motion of knee follow up with pmd and ortho after DC Status: Acute (2) Arthritis Status: Chronic (3) Diabetes 1.5, managed as type 2 Status: Chronic (4) Hypercholesteremia Status: Chronic (5) Hypertensive cardiovascular disease Status: Chronic (6) Myalgia Status: Chronic
== END 2017-08-07 14:40 | disposition home or self-care (01) | DRG 561 ==
LOC: H.TCU 14:52
PROVIDERS: ADMIT Internal Medicine; ATTEND Internal Medicine
PROC: F07Z9FZ Gait Training/Functional Ambulation Treatment using Assistive, Adaptive, Supportive or Protective Equipment (ICD-10-PCS; principal; 2017-07-29)
PROC: F07M6FZ Therapeutic Exercise Treatment of Musculoskeletal System - Whole Body using Assistive, Adaptive, Supportive or Protective Equipment (ICD-10-PCS; 2017-07-29)
PROC: F08Z4FZ Home Management Treatment using Assistive, Adaptive, Supportive or Protective Equipment (ICD-10-PCS; 2017-07-29)
DX: Z47.1 Aftercare following joint replacement surgery (principal); G35 Multiple sclerosis; I11.9 Hypertensive heart disease without heart failure; E11.9 Type 2 diabetes mellitus without complications; Z96.652 Presence of left artificial knee joint; E78.00 Pure hypercholesterolemia, unspecified; M19.90 Unspecified osteoarthritis, unspecified site; M79.1 Myalgia